=== PATIENT | female | born 1975 | race Caucasian/White ===

== ENCOUNTER 2023-08-01 10:26 | Emergency (ER) | payer OTHER, SELFPAY ==
[2023-08-01 10:50] VITALS: BP 129/70; PULSE 77; RESP 16; TEMP 36.6; O2SAT 100
--- NOTE | 2023-08-01 10:55 | ED.GENADULT ---
HPI - General Adult General Chief complaint: Upper Respiratory Infection Stated complaint: Sore Throat;Ear Pain Source: patient, RN notes reviewed and old records reviewed Mode of arrival: ambulatory Limitations: no limitations History of Present Illness HPI narrative: 48-year-old female presents to [facility] with complaint of sore throat, right ear pain, congestion started approximately 3 days ago. Patient taking [id number] medications with no relief. Patient denies chest pain, dizziness, weakness, shortness of breath. Related Data Home Medications Medication Instructions Recorded Confirmed azelastine 137 mcg (0.1 %) nasal intranasal 08/01/23 spray aerosol bupropion HCl 300 mg 24 hr tablet, mg PO 08/01/23 extended release [id number]-tzonlmaj tablet 08/01/23 50 mg-325 mg-40 mg tablet dextroamphetamine-amphetamine 20 08/01/23 mg tablet lorazepam 2 mg tablet mg 08/01/23 lorazepam 2 mg tablet mg 08/01/23 montelukast 10 mg tablet mg 08/01/23 potassium chloride 20 mEq meq PO 08/01/23 tablet,extended release Allergies Allergy/AdvReac Type Severity Reaction Status Date / Time copper Allergy Hives Verified 08/01/23 10:53 Sulfa (Sulfonamide Allergy Hives Verified 08/01/23 10:53 Antibiotics) Review of Systems Constitutional: Constitutional: Reports no additional constitutional complaints, Denies body ache(s), Denies chills, Denies fatigue, Denies fever(s) and Denies headache(s) Eyes: Eyes: Reports no additional eye complaints and Denies blurry vision ENT: Reports system reviewed and no additional complaints, except as documented, Denies vertigo, Denies dizziness, Denies ear discharge, Reports otalgia, Denies facial pain, Denies headache(s), Reports nasal congestion, Denies nasal discharge, Denies sinus pain, Reports sinus pressure and Reports sore throat Cardiovascular: Cardiovascular: Reports no additional cardiovascular complaints, Denies chest pain, Denies chest pain at rest, Denies rapid heart rate and Denies dyspnea Respiratory: Respiratory: Reports no additional respiratory complaints, Denies chest congestion, Denies cough, Denies pain on inspiration, Denies pain with cough and Denies dyspnea Gastrointestinal: Gastrointestinal: Denies abdominal pain, Denies diarrhea, Denies nausea and Denies vomiting Integumentary/Breasts: Skin/Breast: Denies rash Neurologic: Reports system reviewed and no additional complaints, except as documented, Denies vertigo, Denies dizziness and Denies headache(s) Endocrine: Endocrine: Denies fatigue PMFSH Comments At the time of my signature, I reviewed and agree with the nursing past medical, surgical, social, and family history. There is no relevant family history pertinent to the patient complaint. Exam Const: General: cooperative, healthy appearing, no acute distress and well nourished Nutritional Appearance: well nourished Orientation/consciousness: patient oriented x3 Limitations: no limitations HENMT: Head: normal to inspection and normocephalic Ears: external ears normal, TM normal on the left, mastoids normal, Abnormal EAC present and TM abnormal dull on the right and retracted on the right Face/Nose/Sinus: normal facial exam Face and sinus: normal facial exam Mouth: Yes Normal oral and palatal mucosa present, Yes oropharynx normal and Yes moist mucous membranes Throat: tonsils normal, uvula midline, posterior oropharynx abnormal erythema and no uvular edema Eyes: General: appearance normal, both eyes and all related structures Sclera: sclerae normal Pupils: Equal, round and reactive pupils present Resp: Effort & Inspection: normal respiratory effort, able to speak in complete sentences, no audible wheezes, no cough, no respiratory distress and no retractions Auscultation: clear to auscultation bilaterally, no crackles, no rales, no rhonchi and no wheezes Cardio: Rate: regular rate Rhythm: regular rhythm Skin: General
== END 2023-08-01 11:15 | disposition home or self-care (01) ==
PROVIDERS: Emergency Provider Registered Nurse; PCP Internal Medicine
DX: H66.001 Acute suppurative otitis media without spontaneous rupture of ear drum, right ear (principal); Z79.899 Other long term (current) drug therapy
CPT/HCPCS: 87081; 87880; 99213; G0463